=== PATIENT | female | born 1965 | race American Indian/Alaskan Native ===

== ENCOUNTER 2018-05-24 11:28 | Emergency (ER) | payer BC ==
[2018-05-24 11:38] VITALS: BMI 25.7
[2018-05-24 12:13] VITALS: TEMP 98.1
--- NOTE | 2018-05-24 12:43 | RAD ---
Date of service: 05/24/2018 HISTORY: cough r/o infiltrate COMPARISON: 06/02/2015 TECHNIQUE: Chest PA and lateral FINDINGS: LUNGS: No active pulmonary disease. PLEURA: No significant pleural effusion identified. No pneumothorax apparent. CARDIOVASCULAR: No aortic atherosclerotic calcification present. Normal cardiac size. No pulmonary vascular congestion. OSSEOUS STRUCTURES: No significant abnormalities. VISUALIZED UPPER ABDOMEN: Normal. OTHER FINDINGS: None. IMPRESSION: No active disease.
[2018-05-24 13:12] VITALS: BP 133/73; PULSE 88; RESP 20; O2SAT 99
--- NOTE | 2018-05-24 13:26 | ED PDOC ---
Arrival/HPI - General Chief Complaint: Cough, Cold, Congestion Time Seen by Provider: 05/24/18 11:32 Historian: Patient - History of Present Illness Narrative History of Present Illness (Text): 05/24/18 11:40 52 year old female, whose past medical history includes hypertension and hyperlipidema, who presents to the emergency department complaining of a productive cough and fatigue for the past week. Patient reports she noticed acute onset overnight about a week ago and woke up the next morning with a mild cough and feeling tired. 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 Patient states she started taking Augmentin twice a day since she had some left over from last time and Promethazine for cough, with no significant improvement. Patient notes the cough is productive with yellow sputum, but no blood. Pt reports some associated chest pain that increases with cough but better when at rest, described as sharp and non-radiating. Patient denies any fever, chills, nausea, vomiting, diarrhea, constipation, or any other complaints. Pt states she did not get the flu shot. PMD: Dr. Haque. Del Colby Time/Duration: 1 week Symptom Onset: Gradual Symptom Course: Intermittent Activities at Onset: Light Past Medical History - Provider Review Nursing Documentation Reviewed: Yes - Infectious Disease Hx of Infectious Diseases: None - Cardiac Hx Cardiac Disorders: Yes Hx Hypertension: Yes - Pulmonary Hx Respiratory Disorders: No - Neurological Hx Neurological Disorder: No - HEENT Hx HEENT Disorder: No - Renal Hx Renal Disorder: No - Endocrine/Metabolic Hx Endocrine Disorders: No - Hematological/Oncological Hx Blood Disorders: No - Integumentary Hx Dermatological Disorder: No - Musculoskeletal/Rheumatological Hx Musculoskeletal Disorders: No - Gastrointestinal Hx Gastrointestinal Disorders: No - Genitourinary/Gynecological Hx Genitourinary Disorders: No - Psychiatric Hx Psychophysiologic Disorder: No Hx Substance Use: No Family/Social History - Physician Review Nursing Documentation Reviewed: Yes Family/Social History: No Known Family HX Smoking Status: Never Smoked Hx Alcohol Use: No Hx Substance Use: No Allergies/Home Meds Allergies/Adverse Reactions: Allergies No Known Allergies Allergy (Verified 05/24/18 11:53) Home Medications: Home Meds Medication Instructions Recorded Confirmed Rosuvastatin Calcium [Crestor] 20 mg PO DAILY 06/02/15 05/24/18 Azilsartan Medoxomil [Edarbi] 80 mg PO DAILY 05/24/18 05/24/18 Review of Systems - Physician Review All systems were reviewed & negative as marked: Yes - Review of Systems Constitutional: Fatigue. absent: Normal, Fevers, Night Sweats Respiratory: Cough (Pt notes productive cough), Sputum (Pt notes cough with yellow sputum, but no blood). absent: Normal Cardiovascular: Chest Pain (Pt notes associated chest pain, described as sharp and non-radiating). absent: Normal Gastrointestinal: Normal. absent: Constipation, Diarrhea, Nausea, Vomiting Physical Exam Vital Signs Reviewed: Yes Vital Signs Temp Pulse Resp BP Pulse Ox 05/24/18 13:09 88 20 133/73 99 05/24/18 12:12 98.1 F 94 H 18 148/89 98 Temperature: Afebrile Blood Pressure: Normal Pulse: Tachycardic Respiratory Rate: Normal Appearance: Positive for: Well-Appearing, Non-Toxic Pain Distress: Mild Mental Status: Positive for: Alert and Oriented X 3 - Systems Exam Head: Present: Atraumatic, Normocephalic Pupils: Present: PERRL Extroacular Muscles: Present: EOMI Conjunctiva: Present: Normal Ears: Present: Normal, NORMAL TM. No: TM Bulging Mouth: Present: Moist Mucous Membranes Pharnyx: Present: ERYTHEMA. No: Normal, EXUDATE Neck: Present: Normal Range of Motion Respiratory/Chest: Present: Clear to Auscultation. No: Wheezes, Rales, Rhonchi Cardiovascular: Present: Regular Rate and Rhythm, Normal S1, S2. No: Murmurs Abdomen: No: Tenderness, Distention, Peritoneal Signs Back: Present: Normal Inspection Upper Extremity: Present: Normal Inspection. No: Edema, Tenderness Lower Extremity: Present: Normal Inspection. No: Edema, Tenderness, Swelling Neurological: Present: GCS=15, CN II-XII Intact, Speech Normal Skin: Present: Warm, Dry, Normal Color. No: Rashes Lymphatic: No: Cervical Adenopathy Psychiatric: Present: Alert, Oriented x 3, Normal Insight, Normal Concentration Medical Decision Making ED Course and Treatment: 05/24/18 11:40 Impression: 52 year old female presents to the emergency department for a productive cough and fatigue for the past week. Differential Diagnosis included but are not limited to: Plan: -- X-Ray of chest, 2 views (PA/LAT) -- EKG -- Reassess and disposition Prior Visits: Notes and results from previous visits were reviewed. Progress Notes: 05/24/18 12:58 Patient will follow up with PMD in a few days. - RAD Interpretation Narrative RAD Interpretations (Text): X-Ray of chest reviewed by radiologist, shows: Dictated by: Marcelo Castellanos MD Dictated Date/Time: 05/24/18 12:39 Impression: No active disease. Radiology Orders: 05/24/18 11:52 CXR [CHEST TWO VIEWS (PA/LAT)] [RAD] Stat Incident Analyst: Radiologist - EKG Interpretation EKG Interpretation (Text): 05/24/18 11:36 EKG: Ordered, reviewed, and independently interpreted the EKG. Rate : 95 BPM Rhythm : Sinus tachycardia Interpretation : No ST-segment elevations or depressions, no T-wave inversions, normal intervals. Interpreted by ED Physician: Yes Type: 12 lead EKG - Scribe Statement The provider has reviewed the documentation as recorded by the Scribe Karlene Joseph All medical record entries made by the Scribe were at my direction and personally dictated by me. I have reviewed the chart and agree that the record accurately reflects my personal performance of the history, physical exam, medical decision making, and the department course for this patient. I have also personally directed, reviewed, and agree with the discharge instructions and disposition. Disposition/Present on Arrival - Present on Arrival Any Indicators Present on Arrival: No History of DVT/PE: No History of Uncontrolled Diabetes: No Urinary Catheter: No History of Decub. Ulcer: No History Surgical Site Infection Following: None - Disposition Have Diagnosis and Disposition been Completed?: Yes Diagnosis: Viral syndrome Disposition: HOME/ ROUTINE Disposition Time: 12:40 Condition: GOOD Discharge Instructions (ExitCare): Viral Syndrome (DC) Additional Instructions: KORI MATIAS, thank you for letting us take care of you today. The emergency medical care you received today was directed at your acute symptoms. If you were prescribed any medication, please fill it and take as directed. It may take several days for your symptoms to resolve. Return to the Emergency Department if your symptoms worsen, do not improve, or if you have any other problems. Please contact your doctor or call one of the physicians/clinics you have been referred to that are listed on the Patient Visit Information form that is included in your discharge packet. Bring any paperwork you were given at [facility] with you along with any medications you are taking to your follow up visit. Our treatment cannot replace ongoing medical care by a primary care provider outside of the emergency department. Thank you for allowing the [facility] team to be part of your care today. Drink fluids throughout the day to maintain hydration. Follow up with your primary care doctor in 2-3 days for re-evaluation and further management. Referrals: Del Molina MD [Primary Care Provider] - Follow up with primary Forms: Pull (Pashto), WORK NOTE
--- NOTE | 2018-05-24 18:30 | CARD ---
APPROVED REPORT Date of service: 05/24/2018 EKG Measurement Heart [id number] <Conclusion> Normal sinus rhythm Normal Electrocardiogram
== END 2018-05-24 13:34 | disposition home or self-care (01) ==
LOC: ED 11:28
DX: B34.9 Viral infection, unspecified (principal); I10 Essential (primary) hypertension